=== PATIENT | female | born 1990 | race Caucasian/White ===

== ENCOUNTER 2021-12-11 12:27 | Emergency (ER) | payer OTHER, SELFPAY ==
[2021-12-11 12:38] VITALS: BP 121/81; PULSE 80; RESP 16; TEMP 36.9; O2SAT 98; BMI 31.2
--- NOTE | 2021-12-11 12:50 | ED_ITS ---
HPI - General Adult General: Chief complaint: General Medical Stated complaint: Swollen L side of jaw and hurting Time Seen by Provider: 12/11/21 12:30 History of Present Illness: Patient woke up with a swollen jaw this morning. Has history of dental caries and abscesses in the past. Associated symptoms: Reports nausea and vomiting; Deny chest pain, dyspnea, headache(s) or rash Review of Systems Const: Denies: fever(s), chills or body aches Eyes: Denies: eye discomfort ENMT: Reports: mouth pain, dental pain and sinus pain; Denies: throat pain Card: Reports: dyspnea on exertion; Denies: chest pain Resp: Denies: dyspnea GI: Reports: nausea and vomiting; Denies: abdominal pain Skin/Breast: Denies: rash Neuro: Denies: headache(s) Psych: Denies: depression or suicidal ideation Physical Exam Const: COMMON NORMALS: no acute distress, patient oriented x3 and alert HENMT: COMMON NORMALS: normocephalic HEAD & SCALP: normocephalic TEETH & GINGIVA IMAGES: 1. Swelling to the gum without obvious abscess and obvious dental caries, no lymphadenopathy noted OTHER: Left lower jaw swollen, tender to touch. Patient has no trismus. Eye: COMMON NORMALS: EOMs intact bilaterally Neck/C-Spine: COMMON NORMALS: no JVD Resp: COMMON NORMALS: normal respiratory effort and No use of accessory muscles Cardio: COMMON NORMALS: no JVD GI: INSPECTION: Yes normal to inspection Extremity: COMMON NORMALS: normal to inspection and full ROM Neuro: COMMON NORMALS: patient oriented x3 SENSORIUM/ORIENTATION: Yes alert Psych: COMMON NORMALS: mental status grossly normal Skin: COMMON NORMALS: no rashes or lesions noted GENERAL SKIN EXAM: no rashes or lesions noted Course Vital Signs: Vital signs: Vital Signs Temperature 98.4 F 12/11/21 12:38 Pulse Rate 80 12/11/21 12:38 Respiratory Rate 16 12/11/21 12:38 Blood Pressure 121/81 12/11/21 12:38 Pulse Oximetry 98 12/11/21 12:38 [facility] - General Adult Medical Decision Making mild dental abscess Discharge Plan Discharge Patient Disposition: Home Clinical Impression: Abscess, dental Condition: Stable Prescriptions: New clindamycin HCl 300 mg capsule 300 mg PO Q8H 7 Days Qty: 21 0RF Celebrex 100 mg capsule 200 mg PO BID Qty: 20 0RF Discharge Orders: Discharge ED (Routine); Ordered 12/11/21 Ordered By: Tony Boggs Discharge Diet: Usual diet Discharge Activity: Resume usual activity Activity Restrictions/Additional Instructions: Contact [facility] simmons in [place] area and see about getting tooth pulled. Take clindamycin for infection and take the Celebrex for your pain and discomfort. Follow-up with the dentist as soon as possible. Coding Level of Care Code ED Tracer Powder Blender for Jesusg Fwd Exam Comprehensive
== END 2021-12-11 13:04 | disposition home or self-care (01) ==
PROVIDERS: Emergency Provider Nurse Practitioner Family
DX: K04.7 Periapical abscess without sinus (principal)
CPT/HCPCS: 99281